=== PATIENT | female | born 1935 | race Caucasian/White ===

== ENCOUNTER 2022-01-26 11:59 | Inpatient (IN) ==
[2022-01-26] MEDS ORDERED: D5% in Water 1,000 ML IVC PRN (20:05)
[2022-01-26] MEDS ORDERED: *HR* Dextrose 50 % in Water (Syg) 50 ML SYRINGE IVP PRN (20:05)
[2022-01-26] MEDS ORDERED: Dextrose Gel 15 GM/37.5 ML TUBE PO PRN ×2 (20:05)
[2022-01-26] MEDS ORDERED: [UNRECOGNIZED DRUG - OTHER] IV SCH (20:15)
[2022-01-26] MEDS ORDERED: CEFTRIAXONE NA IV SCH (20:15)
[2022-01-26] MEDS ORDERED: DEXTROSE ISO IV SCH (20:15)
[2022-01-26] MEDS: Nystatin POWDER 30 GM BOTTLE TP SCH (21:24)
[2022-01-26] MEDS: Insulin LISPRO 300 UNITS/3 ML VIAL SUBQ SCH (21:24)
[2022-01-26] MEDS: Lactobacillus 1 EACH CAP.SPRINK PO SCH (21:24)
[2022-01-27 04:41] LABS: Basophils % 0.2 %; Eosinophils % 0.3 %; Hematocrit 35.4 % (35.3-44.9); Hemoglobin 11.8 g/dL (11.5-15.4); Immature Granulocytes % 0.6 % (0-4); Lymphocytes # 4.5 K/mcL (0.6-4.6); Mean Corpuscular HGB Conc 33.3 g/dL (31.6-35.5); Mean Corpuscular Hemoglobin 28.7 pg (28.0-33.3); Mean Corpuscular Volume 86.1 fL (83.0-100.0); Mean Platelet Volume 10.5 fL (9.4-12.4); Monocytes # 1.1 K/mcL (0.0-1.3); Monocytes % 7.8 %; Neutrophils # 8.7 K/mcL (1.6-8.9); Platelet Count 149 K/mcL (140-400); Red Blood Count 4.11 M/mcL (3.82-4.97); Red Cell Distribution Width 13.1 % (11.5-14.5); Segmented Neutrophils % 60.1 %; White Blood Count 14.5 K/mcL (4.3-11.1)
[2022-01-27 04:56] LABS: Calcium 8.8 mg/dL (8.6-10.3); Potassium 3.8 mEq/L (3.5-5.1)
[2022-01-27] MEDS: Multivit/Ca/Min/Fe/FA 1 TAB TABLET PO SCH (08:19)
[2022-01-27] MEDS: Nystatin POWDER 30 GM BOTTLE TP SCH ×3 (08:19→20:18)
[2022-01-27] MEDS: BETHANECHOL CHLORIDE 10 MG PO SCH ×2 (08:19→20:18)
[2022-01-27] MEDS: Furosemide 20 MG TABLET PO SCH (08:19)
[2022-01-27] MEDS: Lactobacillus 1 EACH CAP.SPRINK PO SCH ×2 (08:19→20:18)
[2022-01-27] MEDS: Insulin LISPRO 300 UNITS/3 ML VIAL SUBQ SCH ×4 (08:19→20:22)
[2022-01-27] MEDS: Acetaminophen 325 MG TABLET PO PRN ×2 (08:34→22:34)
[2022-01-27] MEDS ORDERED: NON-FORMULARY MEDICATION 1 EACH EACH (Vit C/Vit E/Lutein/Min/Omega-3 [Ocuvite Softgel] 1 E PO SCH (09:00)
[2022-01-27] MEDS: cefTRIAXone 2,000 MG in 0.9 % Sodium Chloride Mini Bag 100 ML IVPB SCH (17:20)
[2022-01-28] MEDS: *HR* Enoxaparin 40 MG/0.4 ML SYRINGE SQ SCH (05:07)
[2022-01-28] MEDS: Insulin LISPRO 300 UNITS/3 ML VIAL SUBQ SCH ×4 (08:47→19:59)
[2022-01-28] MEDS: Lactobacillus 1 EACH CAP.SPRINK PO SCH ×2 (09:01→19:59)
[2022-01-28] MEDS: Multivit/Ca/Min/Fe/FA 1 TAB TABLET PO SCH (09:01)
[2022-01-28] MEDS: Furosemide 20 MG TABLET PO SCH (09:01)
[2022-01-28] MEDS: Nystatin POWDER 30 GM BOTTLE TP SCH ×3 (09:02→19:59)
[2022-01-28] MEDS: BETHANECHOL CHLORIDE 10 MG PO SCH ×2 (09:03→19:59)
[2022-01-28] MEDS: Acetaminophen 325 MG TABLET PO PRN (09:44)
[2022-01-28 12:23] LABS: Basophils # 0.1 K/mcL (0.0-0.2); Basophils % 0.3 %; Eosinophils % 0.2 %; Hematocrit 38.1 % (35.3-44.9); Hemoglobin 12.9 g/dL (11.5-15.4); Immature Granulocytes % 0.6 % (0-4); Lymphocytes # 4.7 K/mcL (0.6-4.6); Lymphocytes % 26.6 %; Mean Corpuscular HGB Conc 33.9 g/dL (31.6-35.5); Mean Corpuscular Hemoglobin 28.8 pg (28.0-33.3); Mean Platelet Volume 10.5 fL (9.4-12.4); Monocytes # 1.4 K/mcL (0.0-1.3); Monocytes % 7.8 %; Neutrophils # 11.5 K/mcL (1.6-8.9); Platelet Count 190 K/mcL (140-400); Red Blood Count 4.48 M/mcL (3.82-4.97); Red Cell Distribution Width 13.2 % (11.5-14.5); Segmented Neutrophils % 64.5 %; White Blood Count 17.8 K/mcL (4.3-11.1)
[2022-01-28] MEDS: cefTRIAXone 2,000 MG in 0.9 % Sodium Chloride Mini Bag 100 ML IVPB SCH (17:38)
[2022-01-29] MEDS: Acetaminophen 325 MG TABLET PO PRN ×2 (00:46→22:16)
[2022-01-29] MEDS: *HR* Enoxaparin 40 MG/0.4 ML SYRINGE SQ SCH (05:36)
[2022-01-29 05:49] LABS: Basophils % 0.3 %; Eosinophils # 0.1 K/mcL (0.0-0.6); Eosinophils % 0.7 %; Hematocrit 34.5 % (35.3-44.9); Hemoglobin 11.5 g/dL (11.5-15.4); Immature Granulocytes % 0.7 % (0-4); Lymphocytes % 25.4 %; Mean Corpuscular HGB Conc 33.3 g/dL (31.6-35.5); Mean Corpuscular Hemoglobin 28.6 pg (28.0-33.3); Mean Corpuscular Volume 85.8 fL (83.0-100.0); Mean Platelet Volume 10.3 fL (9.4-12.4); Monocytes # 1.1 K/mcL (0.0-1.3); Monocytes % 7.8 %; Neutrophils # 8.9 K/mcL (1.6-8.9); Platelet Count 163 K/mcL (140-400); Red Blood Count 4.02 M/mcL (3.82-4.97); Red Cell Distribution Width 13.1 % (11.5-14.5); Segmented Neutrophils % 65.1 %; White Blood Count 13.6 K/mcL (4.3-11.1)
[2022-01-29 05:51] LABS: Lymphocytes # 3.5 K/mcL (0.6-4.6)
[2022-01-29 06:02] LABS: Calcium 8.6 mg/dL (8.6-10.3); Potassium 3.7 mEq/L (3.5-5.1)
[2022-01-29] MEDS: Lactobacillus 1 EACH CAP.SPRINK PO SCH ×2 (08:55→22:16)
[2022-01-29] MEDS: Furosemide 20 MG TABLET PO SCH (08:55)
[2022-01-29] MEDS: Multivit/Ca/Min/Fe/FA 1 TAB TABLET PO SCH (08:55)
[2022-01-29] MEDS: Nystatin POWDER 30 GM BOTTLE TP SCH ×3 (08:56→22:22)
[2022-01-29] MEDS: Insulin LISPRO 300 UNITS/3 ML VIAL SUBQ SCH ×4 (08:56→22:17)
[2022-01-29] MEDS: BETHANECHOL CHLORIDE 10 MG PO SCH ×2 (08:56→22:12)
[2022-01-29] MEDS: cefTRIAXone 2,000 MG in 0.9 % Sodium Chloride Mini Bag 100 ML IVPB SCH (16:40)
[2022-01-30] MEDS: *HR* Enoxaparin 40 MG/0.4 ML SYRINGE SQ SCH (06:20)
[2022-01-30] MEDS: BETHANECHOL CHLORIDE 10 MG PO SCH ×2 (09:58→22:03)
[2022-01-30] MEDS: Lactobacillus 1 EACH CAP.SPRINK PO SCH ×2 (10:06→22:09)
[2022-01-30] MEDS: Multivit/Ca/Min/Fe/FA 1 TAB TABLET PO SCH (10:06)
[2022-01-30] MEDS: Nystatin POWDER 30 GM BOTTLE TP SCH ×3 (10:06→22:21)
[2022-01-30] MEDS: Insulin LISPRO 300 UNITS/3 ML VIAL SUBQ SCH ×4 (10:06→22:09)
[2022-01-30] MEDS: Furosemide 20 MG TABLET PO SCH (10:06)
[2022-01-30 12:52] LABS: Basophils % 0.2 %; Eosinophils % 0.2 %; Hematocrit 36.2 % (35.3-44.9); Hemoglobin 11.9 g/dL (11.5-15.4); Immature Granulocytes % 0.6 % (0-4); Lymphocytes # 3.7 K/mcL (0.6-4.6); Lymphocytes % 26.9 %; Mean Corpuscular HGB Conc 32.9 g/dL (31.6-35.5); Mean Corpuscular Hemoglobin 28.3 pg (28.0-33.3); Mean Platelet Volume 10.5 fL (9.4-12.4); Monocytes % 7.2 %; Neutrophils # 8.9 K/mcL (1.6-8.9); Platelet Count 182 K/mcL (140-400); Red Blood Count 4.21 M/mcL (3.82-4.97); Red Cell Distribution Width 13.2 % (11.5-14.5); Segmented Neutrophils % 64.9 %; White Blood Count 13.7 K/mcL (4.3-11.1)
[2022-01-30 13:11] LABS: Calcium 8.5 mg/dL (8.6-10.3); Potassium 3.6 mEq/L (3.5-5.1)
[2022-01-30] MEDS: cefTRIAXone 2,000 MG in 0.9 % Sodium Chloride Mini Bag 100 ML IVPB SCH (17:28)
[2022-01-30] MEDS: Acetaminophen 325 MG TABLET PO PRN (22:09)
[2022-01-31 05:04] LABS: Basophils % 0.3 %; Eosinophils % 1.3 %; Hematocrit 36.6 % (35.3-44.9); Hemoglobin 12.2 g/dL (11.5-15.4); Immature Granulocytes % 0.8 % (0-4); Lymphocytes # 4.1 K/mcL (0.6-4.6); Lymphocytes % 36.5 %; Mean Corpuscular HGB Conc 33.3 g/dL (31.6-35.5); Mean Corpuscular Hemoglobin 28.7 pg (28.0-33.3); Mean Corpuscular Volume 86.1 fL (83.0-100.0); Mean Platelet Volume 10.4 fL (9.4-12.4); Monocytes # 0.9 K/mcL (0.0-1.3); Monocytes % 7.7 %; Platelet Count 181 K/mcL (140-400); Red Blood Count 4.25 M/mcL (3.82-4.97); Red Cell Distribution Width 13.2 % (11.5-14.5); Segmented Neutrophils % 53.4 %; White Blood Count 11.2 K/mcL (4.3-11.1)
[2022-01-31 05:07] LABS: Eosinophils # 0.2 K/mcL (0.0-0.6)
[2022-01-31 05:19] LABS: Calcium 8.6 mg/dL (8.6-10.3); Potassium 3.5 mEq/L (3.5-5.1)
[2022-01-31] MEDS: *HR* Enoxaparin 40 MG/0.4 ML SYRINGE SQ SCH (05:39)
[2022-01-31] MEDS: BETHANECHOL CHLORIDE 10 MG PO SCH (08:48)
[2022-01-31] MEDS: Nystatin POWDER 30 GM BOTTLE TP SCH ×3 (08:51→22:01)
[2022-01-31] MEDS: Multivit/Ca/Min/Fe/FA 1 TAB TABLET PO SCH (08:51)
[2022-01-31] MEDS: Insulin LISPRO 300 UNITS/3 ML VIAL SUBQ SCH ×4 (08:51→22:00)
[2022-01-31] MEDS: Furosemide 20 MG TABLET PO SCH (08:51)
[2022-01-31] MEDS: Lactobacillus 1 EACH CAP.SPRINK PO SCH ×2 (08:51→21:59)
[2022-01-31] MEDS: cefTRIAXone 2,000 MG in 0.9 % Sodium Chloride Mini Bag 100 ML IVPB SCH (16:47)
[2022-01-31] MEDS: Acetaminophen 325 MG TABLET PO PRN (23:38)
[2022-02-01] MEDS: BETHANECHOL CHLORIDE 10 MG PO SCH ×3 (02:00→20:04)
[2022-02-01] MEDS: Acetaminophen 325 MG TABLET PO PRN (05:46)
[2022-02-01] MEDS: *HR* Enoxaparin 40 MG/0.4 ML SYRINGE SQ SCH (05:47)
[2022-02-01] MEDS: Multivit/Ca/Min/Fe/FA 1 TAB TABLET PO SCH (09:00)
[2022-02-01] MEDS: Nystatin POWDER 30 GM BOTTLE TP SCH ×3 (09:00→20:04)
[2022-02-01] MEDS: Lactobacillus 1 EACH CAP.SPRINK PO SCH ×2 (09:00→20:02)
[2022-02-01] MEDS: Furosemide 20 MG TABLET PO SCH (09:00)
[2022-02-01] MEDS: Insulin LISPRO 300 UNITS/3 ML VIAL SUBQ SCH ×4 (09:00→20:03)
[2022-02-01] MEDS: metroNIDAZOLE 500 MG TABLET PO SCH ×3 (11:42→20:02)
[2022-02-01] MEDS: *HR* HYDROcodone/Acet 5/325 mg TABLET PO PRN ×2 (14:04→20:07)
[2022-02-01] MEDS: cefTRIAXone 2,000 MG in 0.9 % Sodium Chloride Mini Bag 100 ML IVPB SCH (16:59)
[2022-02-02] MEDS: Acetaminophen 325 MG TABLET PO PRN (02:18)
[2022-02-02] MEDS: *HR* Enoxaparin 40 MG/0.4 ML SYRINGE SQ SCH ×2 (04:54→06:26)
[2022-02-02] MEDS: *HR* HYDROcodone/Acet 5/325 mg TABLET PO PRN ×2 (04:55→21:27)
[2022-02-02] MEDS ORDERED: *HR* Labetalol 20 MG/4 ML SYRINGE IVP ONE (05:11)
[2022-02-02] MEDS ORDERED: Ondansetron 4 MG/2 ML VIAL IVP ONE (05:12)
[2022-02-02] MEDS: Multivit/Ca/Min/Fe/FA 1 TAB TABLET PO SCH (08:39)
[2022-02-02] MEDS: metroNIDAZOLE 500 MG TABLET PO SCH ×3 (08:39→21:28)
[2022-02-02] MEDS: Furosemide 20 MG TABLET PO SCH (08:39)
[2022-02-02] MEDS: Lactobacillus 1 EACH CAP.SPRINK PO SCH ×2 (08:39→21:28)
[2022-02-02] MEDS: Insulin LISPRO 300 UNITS/3 ML VIAL SUBQ SCH ×4 (08:40→21:28)
[2022-02-02] MEDS: Nystatin POWDER 30 GM BOTTLE TP SCH ×3 (08:41→21:28)
[2022-02-02] MEDS: BETHANECHOL CHLORIDE 10 MG PO SCH ×2 (08:42→19:21)
[2022-02-02 11:20] LABS: Basophils % 0.2 %; Eosinophils % 0.1 %; Hematocrit 34.7 % (35.3-44.9); Hemoglobin 11.6 g/dL (11.5-15.4); Immature Granulocytes % 0.6 % (0-4); Lymphocytes # 3.7 K/mcL (0.6-4.6); Lymphocytes % 23.8 %; Mean Corpuscular HGB Conc 33.4 g/dL (31.6-35.5); Mean Corpuscular Hemoglobin 28.7 pg (28.0-33.3); Mean Corpuscular Volume 85.9 fL (83.0-100.0); Mean Platelet Volume 10.2 fL (9.4-12.4); Monocytes # 0.9 K/mcL (0.0-1.3); Monocytes % 5.9 %; Neutrophils # 10.9 K/mcL (1.6-8.9); Platelet Count 196 K/mcL (140-400); Red Blood Count 4.04 M/mcL (3.82-4.97); Red Cell Distribution Width 13.2 % (11.5-14.5); Segmented Neutrophils % 69.4 %; White Blood Count 15.7 K/mcL (4.3-11.1)
[2022-02-02 11:33] LABS: Albumin 3.4 g/dL (3.5-5.7); Albumin/Globulin Ratio 0.9 (1.1-2.2); Bilirubin,Total 0.4 mg/dL (0.3-1.0); Calcium 8.4 mg/dL (8.6-10.3); Magnesium 1.7 mg/dL (1.6-2.6); Potassium 3.4 mEq/L (3.5-5.1); Total Protein 7.4 g/dL (6.4-8.9)
[2022-02-02] MEDS: Doxycycline 100 MG CAPSULE PO SCH ×2 (17:01→21:28)
[2022-02-02] MEDS: cefTRIAXone 2,000 MG in 0.9 % Sodium Chloride Mini Bag 100 ML IVPB SCH (17:04)
[2022-02-03] MEDS: Ondansetron ODT 4 MG TAB.RAPDIS SL PRN ×2 (02:46→19:59)
[2022-02-03] MEDS: *HR* Enoxaparin 40 MG/0.4 ML SYRINGE SQ SCH (04:06)
[2022-02-03 06:20] LABS: Basophils % 0.2 %; Eosinophils % 0.1 %; Hematocrit 34.8 % (35.3-44.9); Hemoglobin 11.4 g/dL (11.5-15.4); Lymphocytes # 2.5 K/mcL (0.6-4.6); Lymphocytes % 15.3 %; Mean Corpuscular HGB Conc 32.8 g/dL (31.6-35.5); Mean Corpuscular Hemoglobin 28.3 pg (28.0-33.3); Mean Corpuscular Volume 86.4 fL (83.0-100.0); Mean Platelet Volume 10.4 fL (9.4-12.4); Monocytes # 0.9 K/mcL (0.0-1.3); Monocytes % 5.4 %; Neutrophils # 12.6 K/mcL (1.6-8.9); Platelet Count 177 K/mcL (140-400); Red Blood Count 4.03 M/mcL (3.82-4.97); Red Cell Distribution Width 13.3 % (11.5-14.5); White Blood Count 16.2 K/mcL (4.3-11.1)
[2022-02-03 06:38] LABS: Albumin 3.3 g/dL (3.5-5.7); Albumin/Globulin Ratio 0.9 (1.1-2.2); Bilirubin,Total 0.4 mg/dL (0.3-1.0); Calcium 8.4 mg/dL (8.6-10.3); Globulin 3.8 g/dL (2.4-3.5); Magnesium 1.6 mg/dL (1.6-2.6); Potassium 3.8 mEq/L (3.5-5.1); Total Protein 7.1 g/dL (6.4-8.9)
[2022-02-03] MEDS: Multivit/Ca/Min/Fe/FA 1 TAB TABLET PO SCH (08:28)
[2022-02-03] MEDS: metroNIDAZOLE 500 MG TABLET PO SCH ×3 (08:29→19:59)
[2022-02-03] MEDS: Doxycycline 100 MG CAPSULE PO SCH ×2 (08:29→19:59)
[2022-02-03] MEDS: Lactobacillus 1 EACH CAP.SPRINK PO SCH ×2 (08:29→19:59)
[2022-02-03] MEDS: Furosemide 20 MG TABLET PO SCH (08:29)
[2022-02-03] MEDS: Insulin LISPRO 300 UNITS/3 ML VIAL SUBQ SCH ×4 (08:30→19:59)
[2022-02-03] MEDS: BETHANECHOL CHLORIDE 10 MG PO SCH ×2 (08:34→20:00)
[2022-02-03] MEDS: Nystatin POWDER 30 GM BOTTLE TP SCH ×3 (08:51→20:00)
[2022-02-03] MEDS: cefTRIAXone 2,000 MG in 0.9 % Sodium Chloride Mini Bag 100 ML IVPB SCH (17:44)
[2022-02-03] MEDS: *HR* HYDROcodone/Acet 5/325 mg TABLET PO PRN (19:59)
[2022-02-04] MEDS: Acetaminophen 325 MG TABLET PO PRN ×2 (04:01→21:27)
[2022-02-04] MEDS: *HR* Enoxaparin 40 MG/0.4 ML SYRINGE SQ SCH (04:01)
[2022-02-04 05:13] LABS: Hematocrit 32.2 % (35.3-44.9); Hemoglobin 10.9 g/dL (11.5-15.4); Mean Corpuscular HGB Conc 33.9 g/dL (31.6-35.5); Mean Corpuscular Hemoglobin 28.8 pg (28.0-33.3); Mean Platelet Volume 10.2 fL (9.4-12.4); Platelet Count 178 K/mcL (140-400); Red Blood Count 3.79 M/mcL (3.82-4.97); Red Cell Distribution Width 13.2 % (11.5-14.5); White Blood Count 12.7 K/mcL (4.3-11.1)
[2022-02-04 05:27] LABS: Calcium 8.4 mg/dL (8.6-10.3); Magnesium 1.6 mg/dL (1.6-2.6); Potassium 3.4 mEq/L (3.5-5.1)
[2022-02-04] MEDS: Furosemide 20 MG TABLET PO SCH (08:28)
[2022-02-04] MEDS: Doxycycline 100 MG CAPSULE PO SCH ×2 (08:28→21:27)
[2022-02-04] MEDS: Multivit/Ca/Min/Fe/FA 1 TAB TABLET PO SCH (08:28)
[2022-02-04] MEDS: Lactobacillus 1 EACH CAP.SPRINK PO SCH ×2 (08:28→21:27)
[2022-02-04] MEDS: Insulin LISPRO 300 UNITS/3 ML VIAL SUBQ SCH ×4 (08:28→21:30)
[2022-02-04] MEDS: metroNIDAZOLE 500 MG TABLET PO SCH ×3 (08:28→21:27)
[2022-02-04] MEDS: Nystatin POWDER 30 GM BOTTLE TP SCH ×2 (08:32→16:29)
[2022-02-04] MEDS: BETHANECHOL CHLORIDE 10 MG PO SCH ×2 (08:33→21:31)
[2022-02-04] MEDS ORDERED: 0.9 % Sodium Chloride 1,000 ML IVC SCH (11:45)
[2022-02-04] MEDS: Nystatin Cream 15 GM TUBE TP SCH ×2 (16:19→21:28)
[2022-02-04] MEDS: Lidocaine 5% OINT 35 APPL/35.44 GM TUBE TP SCH ×2 (16:19→21:28)
[2022-02-04] MEDS: Desitin (Zinc Oxide) Max 57 GM TUBE TP SCH ×2 (16:20→21:28)
[2022-02-04] MEDS: cefTRIAXone 2,000 MG in 0.9 % Sodium Chloride Mini Bag 100 ML IVPB SCH (18:20)
[2022-02-04] MEDS: Ondansetron ODT 4 MG TAB.RAPDIS SL PRN (21:27)
[2022-02-05] MEDS: *HR* Enoxaparin 40 MG/0.4 ML SYRINGE SQ SCH (04:17)
[2022-02-05] MEDS: Acetaminophen 325 MG TABLET PO PRN (04:18)
[2022-02-05 05:12] LABS: Basophils % 0.3 %; Eosinophils # 0.1 K/mcL (0.0-0.6); Eosinophils % 0.6 %; Hematocrit 35.2 % (35.3-44.9); Hemoglobin 11.6 g/dL (11.5-15.4); Immature Granulocytes % 1.2 % (0-4); Lymphocytes # 3.7 K/mcL (0.6-4.6); Lymphocytes % 31.5 %; Mean Corpuscular Hemoglobin 28.2 pg (28.0-33.3); Mean Corpuscular Volume 85.6 fL (83.0-100.0); Mean Platelet Volume 10.2 fL (9.4-12.4); Monocytes # 0.9 K/mcL (0.0-1.3); Monocytes % 7.3 %; Neutrophils # 6.9 K/mcL (1.6-8.9); Platelet Count 197 K/mcL (140-400); Red Blood Count 4.11 M/mcL (3.82-4.97); Red Cell Distribution Width 13.3 % (11.5-14.5); Segmented Neutrophils % 59.1 %; White Blood Count 11.7 K/mcL (4.3-11.1)
[2022-02-05 05:26] LABS: Calcium 8.4 mg/dL (8.6-10.3); Potassium 3.3 mEq/L (3.5-5.1)
[2022-02-05] MEDS: Doxycycline 100 MG CAPSULE PO SCH ×2 (08:38→19:59)
[2022-02-05] MEDS: Lactobacillus 1 EACH CAP.SPRINK PO SCH ×2 (08:38→19:59)
[2022-02-05] MEDS: Insulin LISPRO 300 UNITS/3 ML VIAL SUBQ SCH ×4 (08:38→19:58)
[2022-02-05] MEDS: BETHANECHOL CHLORIDE 10 MG PO SCH ×2 (08:39→19:53)
[2022-02-05] MEDS: metroNIDAZOLE 500 MG TABLET PO SCH ×3 (08:39→20:00)
[2022-02-05] MEDS: Furosemide 20 MG TABLET PO SCH (08:39)
[2022-02-05] MEDS: Multivit/Ca/Min/Fe/FA 1 TAB TABLET PO SCH (08:39)
[2022-02-05] MEDS: Desitin (Zinc Oxide) Max 57 GM TUBE TP SCH ×3 (09:58→19:59)
[2022-02-05] MEDS: Nystatin Cream 15 GM TUBE TP SCH ×3 (09:58→19:59)
[2022-02-05] MEDS: Lidocaine 5% OINT 35 APPL/35.44 GM TUBE TP SCH ×3 (09:58→19:59)
[2022-02-05] MEDS: cefTRIAXone 2,000 MG in 0.9 % Sodium Chloride Mini Bag 100 ML IVPB SCH (17:58)
[2022-02-05] MEDS: Insulin DETEMIR 100 UNIT/ML X5UNITS SUBQ SCH (20:00)
[2022-02-06] MEDS: *HR* Enoxaparin 40 MG/0.4 ML SYRINGE SQ SCH (04:50)
[2022-02-06] MEDS: metroNIDAZOLE 500 MG TABLET PO SCH ×3 (08:37→21:11)
[2022-02-06] MEDS: Doxycycline 100 MG CAPSULE PO SCH ×2 (08:37→21:11)
[2022-02-06] MEDS: Furosemide 20 MG TABLET PO SCH (08:37)
[2022-02-06] MEDS: Multivit/Ca/Min/Fe/FA 1 TAB TABLET PO SCH (08:38)
[2022-02-06] MEDS: Lactobacillus 1 EACH CAP.SPRINK PO SCH ×2 (08:38→21:11)
[2022-02-06] MEDS: Insulin LISPRO 300 UNITS/3 ML VIAL SUBQ SCH ×4 (08:38→21:20)
[2022-02-06] MEDS: BETHANECHOL CHLORIDE 10 MG PO SCH (08:38)
[2022-02-06] MEDS: Nystatin Cream 15 GM TUBE TP SCH ×3 (08:40→21:12)
[2022-02-06] MEDS: Desitin (Zinc Oxide) Max 57 GM TUBE TP SCH ×3 (08:40→21:12)
[2022-02-06] MEDS: Lidocaine 5% OINT 35 APPL/35.44 GM TUBE TP SCH ×3 (08:41→21:12)
[2022-02-06] MEDS: cefTRIAXone 2,000 MG in 0.9 % Sodium Chloride Mini Bag 100 ML IVPB SCH (17:33)
[2022-02-06] MEDS: Insulin DETEMIR 100 UNIT/ML X5UNITS SUBQ SCH (21:21)
[2022-02-07] MEDS: BETHANECHOL CHLORIDE 10 MG PO SCH ×2 (00:39→09:25)
[2022-02-07 04:46] LABS: Basophils # 0.1 K/mcL (0.0-0.2); Basophils % 0.4 %; Eosinophils # 0.1 K/mcL (0.0-0.6); Eosinophils % 0.5 %; Hematocrit 33.8 % (35.3-44.9); Hemoglobin 11.5 g/dL (11.5-15.4); Immature Granulocytes % 1.5 % (0-4); Lymphocytes # 4.4 K/mcL (0.6-4.6); Lymphocytes % 39.3 %; Mean Corpuscular Hemoglobin 28.9 pg (28.0-33.3); Mean Corpuscular Volume 84.9 fL (83.0-100.0); Mean Platelet Volume 10.2 fL (9.4-12.4); Monocytes # 0.7 K/mcL (0.0-1.3); Monocytes % 6.2 %; Neutrophils # 5.9 K/mcL (1.6-8.9); Platelet Count 213 K/mcL (140-400); Red Blood Count 3.98 M/mcL (3.82-4.97); Red Cell Distribution Width 13.4 % (11.5-14.5); Segmented Neutrophils % 52.1 %; White Blood Count 11.3 K/mcL (4.3-11.1)
[2022-02-07] MEDS: *HR* Enoxaparin 40 MG/0.4 ML SYRINGE SQ SCH (05:46)
[2022-02-07 05:56] LABS: Calcium 8.4 mg/dL (8.6-10.3); Magnesium 1.5 mg/dL (1.6-2.6); Potassium 3.4 mEq/L (3.5-5.1)
[2022-02-07] MEDS: metroNIDAZOLE 500 MG TABLET PO SCH ×3 (09:17→20:29)
[2022-02-07] MEDS: Furosemide 20 MG TABLET PO SCH (09:18)
[2022-02-07] MEDS: Multivit/Ca/Min/Fe/FA 1 TAB TABLET PO SCH (09:18)
[2022-02-07] MEDS: Doxycycline 100 MG CAPSULE PO SCH ×2 (09:18→20:29)
[2022-02-07] MEDS: Lidocaine 5% OINT 35 APPL/35.44 GM TUBE TP SCH ×3 (09:20→20:30)
[2022-02-07] MEDS: Desitin (Zinc Oxide) Max 57 GM TUBE TP SCH ×3 (09:20→20:30)
[2022-02-07] MEDS: Lactobacillus 1 EACH CAP.SPRINK PO SCH ×2 (09:22→20:29)
[2022-02-07] MEDS: Insulin LISPRO 300 UNITS/3 ML VIAL SUBQ SCH ×4 (09:23→20:30)
[2022-02-07] MEDS: Nystatin Cream 15 GM TUBE TP SCH ×3 (09:25→20:30)
[2022-02-07] MEDS: cefTRIAXone 2,000 MG in 0.9 % Sodium Chloride Mini Bag 100 ML IVPB SCH (17:56)
[2022-02-07] MEDS ORDERED: Insulin DETEMIR 100 UNIT/ML per UNIT SUBQ ONE (21:00)
[2022-02-08] MEDS: BETHANECHOL CHLORIDE 10 MG PO SCH ×3 (00:17→22:05)
[2022-02-08] MEDS: Acetaminophen 325 MG TABLET PO PRN (04:35)
[2022-02-08] MEDS: *HR* Enoxaparin 40 MG/0.4 ML SYRINGE SQ SCH (04:35)
[2022-02-08] MEDS: Lactobacillus 1 EACH CAP.SPRINK PO SCH ×2 (08:52→22:04)
[2022-02-08] MEDS: Furosemide 20 MG TABLET PO SCH (08:52)
[2022-02-08] MEDS: metroNIDAZOLE 500 MG TABLET PO SCH ×3 (08:52→22:03)
[2022-02-08] MEDS: Doxycycline 100 MG CAPSULE PO SCH ×2 (08:53→22:03)
[2022-02-08] MEDS: Multivit/Ca/Min/Fe/FA 1 TAB TABLET PO SCH (08:53)
[2022-02-08] MEDS: Insulin LISPRO 300 UNITS/3 ML VIAL SUBQ SCH ×4 (08:55→22:04)
[2022-02-08] MEDS: Nystatin Cream 15 GM TUBE TP SCH ×3 (08:57→22:05)
[2022-02-08] MEDS: Desitin (Zinc Oxide) Max 57 GM TUBE TP SCH ×3 (08:58→22:05)
[2022-02-08] MEDS: Lidocaine 5% OINT 35 APPL/35.44 GM TUBE TP SCH ×3 (14:08→22:05)
[2022-02-08] MEDS: cefTRIAXone 2,000 MG in 0.9 % Sodium Chloride Mini Bag 100 ML IVPB SCH (16:41)
[2022-02-08] MEDS: Ondansetron ODT 4 MG TAB.RAPDIS SL PRN (22:03)
[2022-02-08] MEDS: *HR* HYDROcodone/Acet 5/325 mg TABLET PO PRN (22:03)
[2022-02-08] MEDS: Insulin DETEMIR 100 UNIT/ML X5UNITS SUBQ SCH (22:04)
[2022-02-09] MEDS: *HR* Enoxaparin 40 MG/0.4 ML SYRINGE SQ SCH (05:05)
[2022-02-09] MEDS: Insulin LISPRO 300 UNITS/3 ML VIAL SUBQ SCH ×4 (09:47→21:17)
[2022-02-09] MEDS: metroNIDAZOLE 500 MG TABLET PO SCH ×3 (09:56→21:17)
[2022-02-09] MEDS: Lactobacillus 1 EACH CAP.SPRINK PO SCH ×2 (09:56→21:17)
[2022-02-09] MEDS: Furosemide 20 MG TABLET PO SCH (09:56)
[2022-02-09] MEDS: BETHANECHOL CHLORIDE 10 MG PO SCH ×2 (09:56→21:18)
[2022-02-09] MEDS: Multivit/Ca/Min/Fe/FA 1 TAB TABLET PO SCH (09:56)
[2022-02-09] MEDS: Doxycycline 100 MG CAPSULE PO SCH (09:56)
[2022-02-09] MEDS: Lidocaine 5% OINT 35 APPL/35.44 GM TUBE TP SCH ×3 (11:52→21:18)
[2022-02-09] MEDS: Desitin (Zinc Oxide) Max 57 GM TUBE TP SCH ×3 (11:52→21:17)
[2022-02-09] MEDS: Nystatin Cream 15 GM TUBE TP SCH ×3 (11:52→21:17)
[2022-02-09] MEDS: cefTRIAXone 2,000 MG in 0.9 % Sodium Chloride Mini Bag 100 ML IVPB SCH (18:03)
[2022-02-09] MEDS: Acetaminophen 325 MG TABLET PO PRN (21:16)
[2022-02-09] MEDS: Ondansetron ODT 4 MG TAB.RAPDIS SL PRN (21:17)
[2022-02-09] MEDS: Insulin DETEMIR 100 UNIT/ML X5UNITS SUBQ SCH (21:18)
[2022-02-10] MEDS: *HR* Enoxaparin 40 MG/0.4 ML SYRINGE SQ SCH (05:26)
[2022-02-10 05:35] LABS: Basophils % 0.3 %; Eosinophils # 0.1 K/mcL (0.0-0.6); Eosinophils % 0.5 %; Hematocrit 35.9 % (35.3-44.9); Hemoglobin 11.7 g/dL (11.5-15.4); Immature Granulocytes % 0.7 % (0-4); Lymphocytes # 5.1 K/mcL (0.6-4.6); Lymphocytes % 34.7 %; Mean Corpuscular HGB Conc 32.6 g/dL (31.6-35.5); Mean Corpuscular Hemoglobin 28.1 pg (28.0-33.3); Mean Corpuscular Volume 86.3 fL (83.0-100.0); Mean Platelet Volume 10.2 fL (9.4-12.4); Monocytes # 0.8 K/mcL (0.0-1.3); Monocytes % 5.5 %; Neutrophils # 8.6 K/mcL (1.6-8.9); Platelet Count 219 K/mcL (140-400); Red Blood Count 4.16 M/mcL (3.82-4.97); Red Cell Distribution Width 13.9 % (11.5-14.5); Segmented Neutrophils % 58.3 %; White Blood Count 14.7 K/mcL (4.3-11.1)
[2022-02-10 05:53] LABS: Albumin 3.2 g/dL (3.5-5.7); Albumin/Globulin Ratio 0.9 (1.1-2.2); Bilirubin,Total 0.4 mg/dL (0.3-1.0); Calcium 8.5 mg/dL (8.6-10.3); Globulin 3.4 g/dL (2.4-3.5); Magnesium 1.5 mg/dL (1.6-2.6); Potassium 3.7 mEq/L (3.5-5.1); Total Protein 6.6 g/dL (6.4-8.9)
[2022-02-10 07:21] VITALS: RESP 16
[2022-02-10] MEDS: Lactobacillus 1 EACH CAP.SPRINK PO SCH ×2 (09:29→22:17)
[2022-02-10] MEDS: Multivit/Ca/Min/Fe/FA 1 TAB TABLET PO SCH (09:29)
[2022-02-10] MEDS: Insulin LISPRO 300 UNITS/3 ML VIAL SUBQ SCH ×4 (09:29→22:17)
[2022-02-10] MEDS: metroNIDAZOLE 500 MG TABLET PO SCH ×3 (09:29→22:17)
[2022-02-10] MEDS: Furosemide 20 MG TABLET PO SCH (09:29)
[2022-02-10] MEDS: BETHANECHOL CHLORIDE 10 MG PO SCH ×2 (09:34→22:18)
[2022-02-10] MEDS: Nystatin Cream 15 GM TUBE TP SCH ×3 (09:41→22:15)
[2022-02-10] MEDS: Desitin (Zinc Oxide) Max 57 GM TUBE TP SCH ×3 (09:41→22:16)
[2022-02-10] MEDS: Lidocaine 5% OINT 35 APPL/35.44 GM TUBE TP SCH ×3 (09:41→22:16)
[2022-02-10] MEDS: cefTRIAXone 2,000 MG in 0.9 % Sodium Chloride Mini Bag 100 ML IVPB SCH (16:29)
[2022-02-10] MEDS: Insulin DETEMIR 100 UNIT/ML X5UNITS SUBQ SCH (22:16)
[2022-02-10] MEDS: Acetaminophen 325 MG TABLET PO PRN (22:16)
[2022-02-10] MEDS: Ondansetron ODT 4 MG TAB.RAPDIS SL PRN (22:17)
[2022-02-11] MEDS: *HR* Enoxaparin 40 MG/0.4 ML SYRINGE SQ SCH (04:52)
[2022-02-11 07:08] VITALS: BP 145/72; PULSE 87; TEMP 98.1; O2SAT 93
[2022-02-11] MEDS: Furosemide 20 MG TABLET PO SCH (08:38)
[2022-02-11] MEDS: Lactobacillus 1 EACH CAP.SPRINK PO SCH (08:38)
[2022-02-11] MEDS: Insulin LISPRO 300 UNITS/3 ML VIAL SUBQ SCH ×2 (08:38→11:47)
[2022-02-11] MEDS: Multivit/Ca/Min/Fe/FA 1 TAB TABLET PO SCH (08:38)
[2022-02-11] MEDS: metroNIDAZOLE 500 MG TABLET PO SCH (08:38)
[2022-02-11] MEDS: Desitin (Zinc Oxide) Max 57 GM TUBE TP SCH (08:39)
[2022-02-11] MEDS: Lidocaine 5% OINT 35 APPL/35.44 GM TUBE TP SCH (08:39)
[2022-02-11] MEDS: Nystatin Cream 15 GM TUBE TP SCH (08:39)
[2022-02-11] MEDS: BETHANECHOL CHLORIDE 10 MG PO SCH (08:39)
[2022-02-11] MEDS ORDERED: cefTRIAXone 2,000 MG in 0.9 % Sodium Chloride Mini Bag 100 ML IVPB SCH (18:00)
== END 2022-02-11 14:20 | DRG 637 ==
LOC: INPGRE 20:04
PROVIDERS: ADMIT Family Medicine; ATTEND Family Medicine